=== PATIENT | female | born 1985 | race Caucasian/White ===

== ENCOUNTER 2021-09-18 09:56 | Outpatient (CLI) | payer OTHER | END 2021-09-18 09:57 | disposition home or self-care (01) | LOC: SCSRAD 09:56 | PROVIDERS: ATTEND Urology | DX: N20.0 Calculus of kidney (principal); R31.9 Hematuria, unspecified; R10.11 Right upper quadrant pain; N28.89 Other specified disorders of kidney and ureter | CPT/HCPCS: 74018 ==